=== PATIENT | male | born 1995 | race Caucasian/White ===

== ENCOUNTER → 2017-03-10 | Outpatient (CLI) | payer MEDICAID ==
[2017-03-10 16:33] LABS: BUN 13 mg/dL (7-18)
[2017-03-10 16:45] LABS: GFR (ESTIMATED) 123 ML/MIN (>60)
[2017-03-15 20:38] LABS: Testosterone, Total, LC/MS 670.6 ng/dL (264.0-916.0)
== END ==
LOC: LAB 14:59
PROVIDERS: Internal Medicine Endocrinology, Diabetes & Metabolism
DX: E29.1 Testicular hypofunction (principal); Q89.1 Congenital malformations of adrenal gland